=== PATIENT | female | born 1975 | race Caucasian/White ===

== ENCOUNTER 2017-11-27 21:58 | Emergency (ER) | payer OTHER ==
[~2017-11-27] VITALS: Ht 157.5 cm; Wt 81.6 kg
[~2017-11-27 21:58] MED LIST: LOSARTAN POTASS25 MG; METFORMIN HCL1000 M2
[2017-11-27] MEDS ORDERED: ATENOLOL25 MG PO (22:04)
[2017-11-27] MEDS ORDERED: [UNRECOGNIZED DRUG - OTHER] (22:05)
[2017-11-28] MEDS ORDERED: ACIDOPHILUS1 EAC1 PO (03:36)
[2017-11-28] MEDS ORDERED: LEVSIN/SL0.125 MG SL (03:36)
[2017-11-28] MEDS ORDERED: ZOFRAN ODT8 MG PO (03:36)
== END 2017-11-28 04:03 | disposition home or self-care (01) ==
LOC: ER 21:58
DX: R10.11 Right upper quadrant pain (principal)

== ENCOUNTER 2023-07-27 23:10 | Emergency (ER) | payer OTHER ==
[~2023-07-27] VITALS: Ht 157.5 cm; Wt 72.6 kg
[~2023-07-27 23:10] MED LIST changes: +ACIDOPHILUS1 EAC1 PO; +ATENOLOL25 MG PO; +LEVSIN/SL0.125 MG SL; +NABUMETONE750 MG PO; +NORFLEX100MG PO; +ZOFRAN ODT8 MG PO; +[UNRECOGNIZED DRUG - OTHER]
[2023-07-27] MEDS ORDERED: PROZAC10 M1 PO (23:59)
[2023-07-28] MEDS ORDERED: WELLBUTRIN XL300 MG PO
[2023-07-28 00:57] LABS: HEMATOCRIT 42.4 % (36.0-45.00); HEMOGLOBIN 13.7 g/dL (12.0-15.00); MEAN CELL VOLUME 85.6 fL (80.00-100.00); MEAN CORPUSCULAR HEMOGLOBIN 27.6 pg (27.00-32.0); MEAN CORPUSCULAR HGB CONC 32.3 g/dl (32.0-36.0); PLATELET COUNT 298 K/uL (150-450); RED BLOOD COUNT 4.96 M/uL (4.00-6.00); RED CELL DISTRIBUTION WIDTH 13.7 % (11.5-14.5)
[2023-07-28 01:04] LABS: CALCIUM 9.4 mg/dL (8.5-10.1); CREATININE SERUM 0.7 mg/dL (0.55-1.02); GFR 90.08; POTASSIUM 3.79 mEq/L (3.5-5.1)
== END 2023-07-28 04:37 | disposition home or self-care (01) ==
LOC: ER
DX: K29.70 Gastritis, unspecified, without bleeding (principal); R11.10 Vomiting, unspecified

== ENCOUNTER 2023-11-25 20:30 | Inpatient (IN) | payer OTHER ==
[~2023-11-25] VITALS: Ht 157.5 cm; Wt 71.7 kg
[~2023-11-25 20:30] MED LIST changes: +PROZAC10 M1 PO; +WELLBUTRIN XL300 MG PO
[2023-11-25] MEDS ORDERED: FAMOTIDINE/PF 20 MG in 0.9 % SODIUM CHLORIDE 8 ML IV PUSH STA (20:55)
[2023-11-25] MEDS ORDERED: ONDANSETRON HCL 2 MG/ML VIAL IV ONE (21:00)
[2023-11-25] MEDS ORDERED: KETOROLAC TROMETHAMINE 30 MG VIAL IV ONE (21:00)
[2023-11-25] MEDS ORDERED: 0.9 % SODIUM CHLORIDE 1,000 ML IV SCH (21:00)
[2023-11-25 21:20] LABS: HEMATOCRIT 40.9 % (36.0-45.00); HEMOGLOBIN 13.7 g/dL (12.0-15.00); MEAN CELL VOLUME 83.8 fL (80.00-100.00); MEAN CORPUSCULAR HGB CONC 33.4 g/dl (32.0-36.0); PLATELET COUNT 307 K/uL (150-450); RED BLOOD COUNT 4.87 M/uL (4.00-6.00); RED CELL DISTRIBUTION WIDTH 12.8 % (11.5-14.5)
[2023-11-25 21:43] LABS: ALBUMIN 3.9 gm/dL (3.4-5.0); BILIRUBIN TOTAL 0.53 mg/dL (0.3-1.2); BILIRUBIN,CONJUGATED 0.14 mg/dL (0.0-0.2); BILIRUBIN,UNCONJUGATED 0.39 mg/dL (0.0-0.6); CALCIUM 9.5 mg/dL (8.5-10.1); CREATININE SERUM 0.72 mg/dL (0.55-1.02); GFR 87.2; GLOBULINA 3.5 G/DL (2.4-3.5); POTASSIUM 3.76 mEq/L (3.5-5.1); TOTAL PROTEIN 7.4 gm/dL (6.4-8.2)
[2023-11-26] MEDS ORDERED: KETOROLAC TROMETHAMINE 60 MG VIAL IM STA (07:57)
[2023-11-26] MEDS ORDERED: PROMETHAZINE HCL 50 MG/ML AMPUL IM STA (07:57)
[2023-11-26] MEDS ORDERED: CEFTRIAXONE SODIUM 1,000 MG VIAL IV STA (07:58)
[2023-11-26] MEDS ORDERED: FAMOTIDINE/PF 20 MG/2 ML VIAL IV PUSH STA (07:58)
[2023-11-26] MEDS ORDERED: HYOSCYAMINE SULFATE 0.125 MG TAB.SUBL SL ONE (08:00)
[2023-11-26] MEDS ORDERED: ONDANSETRON HCL 2 MG/ML VIAL IV PRN (08:15)
[2023-11-26] MEDS ORDERED: KETOROLAC TROMETHAMINE 30 MG VIAL IM PRN (08:15)
[2023-11-26] MEDS ORDERED: PIPERACILLIN/TAZOBACTAM SODIUM 3.375 GM VIAL IV SCH (12:00)
[2023-11-26] MEDS ORDERED: MORPHINE SULFATE 2 MG/ML CARTRIDGE IV SCH (13:14)
[2023-11-27 07:27] LABS: INR 1.09; PROTHROMBIN TIME 11.4 SECONDS (9.0-11.5)
== END 2023-11-27 13:30 | disposition left against medical advice (07) | DRG 446 ==
LOC: ER 20:31 → CIR.AMB 11-26 10:41 → ER 11-26 10:41 → SEC-K 11-26 13:51 → SURH 11-26 13:51
PROVIDERS: General Practice; ADMIT Internal Medicine; ATTEND Internal Medicine
PROC: BW40ZZZ Ultrasonography of Abdomen (ICD-10-PCS; principal; 2023-11-26)
PROC: CF1C1ZZ Planar Nuclear Medicine Imaging of Hepatobiliary System, All using Technetium 99m (Tc-99m) (ICD-10-PCS; 2023-11-26)
DX: K80.40 Calculus of bile duct with cholecystitis, unspecified, without obstruction (principal); Z20.822 Contact with and (suspected) exposure to COVID-19

== ENCOUNTER 2024-08-07 08:12 | Emergency (ER) | payer OTHER ==
[~2024-08-07] VITALS: Ht 157.5 cm; Wt 68.0 kg
[2024-08-07] MEDS ORDERED: RINGERS SOLUTION,LACTATED 1,000 ML IV STA (08:36)
[2024-08-07] MEDS ORDERED: FAMOtidine 10 MG/ML (4ML VIAL) IV STA (08:36)
[2024-08-07] MEDS ORDERED: ONDANSETRON HCL 2 MG/ML VIAL IV STA (08:36)
[2024-08-07 09:38] LABS: HEMATOCRIT 44.8 % (36.0-45.00); MEAN CELL VOLUME 86.2 fL (80.00-100.00); MEAN CORPUSCULAR HEMOGLOBIN 27.7 pg (27.00-32.0); MEAN CORPUSCULAR HGB CONC 32.1 g/dl (32.0-36.0); PLATELET COUNT 292 K/uL (150-450); RED BLOOD COUNT 5.19 M/uL (4.00-6.00); RED CELL DISTRIBUTION WIDTH 12.9 % (11.5-14.5)
[2024-08-07 09:40] LABS: HEMOGLOBIN 14.4 g/dL (12.0-15.00)
[2024-08-07 10:04] LABS: ALBUMIN 3.9 gm/dL (3.4-5.0); BILIRUBIN TOTAL 0.32 mg/dL (0.3-1.2); BILIRUBIN,CONJUGATED 0.1 mg/dL (0.0-0.2); BILIRUBIN,UNCONJUGATED 0.22 mg/dL (0.0-0.6); CREATININE SERUM 0.69 mg/dL (0.55-1.02); GFR 91.19; POTASSIUM 4.53 mEq/L (3.5-5.1)
[2024-08-07 13:34] LABS: URINE APPEARANCE Turbid; URINE BILIRRUBIN Negative (NEGATIVE); URINE BLOOD Negative; URINE COLOR Yellow; URINE GLUCOSE Negative (NEGATIVE); URINE KETONE Negative (NEGATIVE); URINE LEUKOCYTE Negative; URINE NITRATE Negative; URINE PROTEIN Negative (NEGATIVE); URINE UROBILINOGEN 0.2 E.U./dl
[2024-08-07 13:41] LABS: URINE BACTERIA 554.3 uL (0.0-1933); URINE EPITHELIAL CELLS 25.5 uL (0.0-38.8); URINE RBC 25.3 uL (0.0-20.8); URINE WBC 5.1 uL (0.0-23.2)
== END 2024-08-07 14:30 | disposition home or self-care (01) ==
LOC: ER 08:14
PROVIDERS: General Practice
DX: K52.89 Other specified noninfective gastroenteritis and colitis (principal); Z86.59 Personal history of other mental and behavioral disorders

== ENCOUNTER 2024-11-24 17:24 | Emergency (ER) | payer OTHER ==
[~2024-11-24] VITALS: Ht 162.6 cm; Wt 59.0 kg
[2024-11-24] MEDS ORDERED: FAMOTIDINE/PF 20 MG in 0.9 % SODIUM CHLORIDE 8 ML IV PUSH STA (18:12)
[2024-11-24] MEDS ORDERED: 0.9 % SODIUM CHLORIDE 1,000 ML IV SCH (18:15)
[2024-11-24] MEDS ORDERED: ONDANSETRON HCL 2 MG/ML VIAL IV ONE (18:15)
[2024-11-24 18:45] LABS: HEMATOCRIT 44.1 % (36.0-45.00); HEMOGLOBIN 14.6 g/dL (12.0-15.00); MEAN CORPUSCULAR HEMOGLOBIN 28.5 pg (27.00-32.0); MEAN CORPUSCULAR HGB CONC 33.1 g/dl (32.0-36.0); PLATELET COUNT 348 K/uL (150-450); RED BLOOD COUNT 5.12 M/uL (4.00-6.00); RED CELL DISTRIBUTION WIDTH 13.7 % (11.5-14.5)
[2024-11-24 19:16] LABS: ALBUMIN 4.3 gm/dL (3.4-5.0); BILIRUBIN TOTAL 0.42 mg/dL (0.3-1.2); CALCIUM 9.7 mg/dL (8.5-10.1); CREATININE SERUM 0.87 mg/dL (0.55-1.02); GFR 69.79; GLOBULINA 3.8 G/DL (2.4-3.5); POTASSIUM 3.84 mEq/L (3.5-5.1); TOTAL PROTEIN 8.1 gm/dL (6.4-8.2)
[2024-11-24] MEDS ORDERED: ZOFRAN8 MG PO (20:13)
[2024-11-24] MEDS ORDERED: PEPCID AC20 MG PO (20:13)
== END 2024-11-24 20:35 | disposition home or self-care (01) ==
LOC: ER 17:24
PROVIDERS: General Practice
DX: K29.70 Gastritis, unspecified, without bleeding (principal)

== ENCOUNTER 2024-11-24 23:01 | Emergency (ER) | payer OTHER ==
[~2024-11-24] VITALS: Ht 157.5 cm; Wt 65.8 kg
[~2024-11-24 23:01] MED LIST changes: +PEPCID AC20 MG PO; +ZOFRAN8 MG PO
[2024-11-25] MEDS ORDERED: 0.9 % SODIUM CHLORIDE 1,000 ML IV STA (00:29)
[2024-11-25] MEDS ORDERED: PROMETHAZINE HCL 50 MG/ML AMPUL IM STA (00:29)
[2024-11-25] MEDS ORDERED: METOCLOPRAMIDE HCL 5 MG/ML VIAL IM STA (00:30)
== END 2024-11-25 05:40 | disposition home or self-care (01) ==
LOC: ER 23:03
DX: K29.70 Gastritis, unspecified, without bleeding (principal); K21.9 Gastro-esophageal reflux disease without esophagitis; R11.10 Vomiting, unspecified
CPT/HCPCS: 96365; 96366; 96372; 99282; J2250; J2765; J7030

== ENCOUNTER 2025-04-06 03:06 | Emergency (ER) | payer OTHER ==
[~2025-04-06] VITALS: Ht 157.5 cm; Wt 65.3 kg
[2025-04-06] MEDS ORDERED: MORPHINE SULFATE 4 MG/ML VIAL IV STA (04:43)
[2025-04-06] MEDS ORDERED: FAMOTIDINE/PF 20 MG/2 ML VIAL IV PUSH STA (04:44)
[2025-04-06] MEDS ORDERED: PROMETHAZINE HCL 25 MG/ML AMPUL IM STA (04:45)
[2025-04-06] MEDS ORDERED: PROMETHAZINE HCL 25 MG/ML AMPUL ONE (04:57)
[2025-04-06 06:15] LABS: BASO % 0.2 % (0.1-1.2); EOS # 0.01 (0.04-0.54); EOS % 0.1 % (0.7-7.0); LYMPH # 0.71 (1.18-3.74); LYMPH % 5.0 % (19.3-53.1); MEAN PLATELET VOLUME 10.20 fl (9.4-12.4); MONO # 1.36 (0.24-0.82); MONO % 9.6 % (4.7-12.5); NEUT # 12.00 (1.56-6.13); NEUT % 84.7 % (34.0-71.1); RED CELL DISTRIBUTION WIDTH 12.7 % (11.6-14.4)
[2025-04-06 06:50] LABS: INR 1.07
[2025-04-06 06:59] LABS: URINE EPITHELIAL CELLS 20.4 uL (0.0-38.8); URINE RBC 9.3 uL (0.0-20.8); URINE WBC 1049.3 uL (0.0-23.2)
[2025-04-06 07:04] LABS: ALT/SGPT 18.0 U/L (12-78); AST/SGOT 11.0 U/L (15-37); BILIRUBIN TOTAL 1.02 mg/dL (0.3-1.2); BILIRUBIN,CONJUGATED 0.22 mg/dL (0.0-0.2); BUN CREA RATIO 14.0 (7.0-25.0); CREATININE SERUM 0.76 mg/dL (0.55-1.02); GFR 81.57; GLOBULINA 3.3 G/DL (2.4-3.5); GLUCOSE FASTING 100.0 mg/dL (65-100); OSMOLALITY SERUM 277.0 MOSM/KG (275-295)
[2025-04-06 07:06] LABS: URINE APPEARANCE Cloudy; URINE BILIRRUBIN Negative (NEGATIVE); URINE BLOOD Trace; URINE COLOR Yellow; URINE GLUCOSE Negative (NEGATIVE); URINE LEUKOCYTE Moderate; URINE NITRATE Positive; URINE PROTEIN Trace (NEGATIVE); URINE UROBILINOGEN 1.0 E.U./dl
[2025-04-06 07:09] LABS: URINE BACTERIA > 9821.5 uL (0.0-1933); URINE CAST 0.00 uL (0.0-1.40); URINE KETONE 40 (NEGATIVE)
[2025-04-06] MEDS ORDERED: CEFTRIAXONE SODIUM 1,000 MG VIAL ONE (07:28)
[2025-04-06] MEDS ORDERED: CEFTRIAXONE SODIUM 1,000 MG VIAL IV STA (07:29)
[2025-04-06] MEDS ORDERED: CIPRO500 MG PO ×3 (08:17→08:18)
[2025-04-06] MEDS ORDERED: NABUMETONE750 MG PO ×3 (08:17→08:18)
[2025-04-06] MEDS ORDERED: PEPCID40 MG PO (08:18)
[2025-04-06] MEDS ORDERED: KETOROLAC TROMETHAMINE 60 MG VIAL IM ONE ×2 (08:58→09:00)
== END 2025-04-06 09:12 ==
LOC: ER 03:11
PROVIDERS: General Practice
DX: N39.0 Urinary tract infection, site not specified (principal); R10.9 Unspecified abdominal pain; R11.0 Nausea; I10 Essential (primary) hypertension

== ENCOUNTER 2025-04-07 12:24 | Emergency (ER) | payer OTHER ==
[~2025-04-07] VITALS: Ht 157.5 cm; Wt 65.8 kg
[~2025-04-07 12:24] MED LIST changes: +CIPRO500 MG PO; +PEPCID40 MG PO
[2025-04-07] MEDS ORDERED: TRAMADOL HCL 50 MG TABLET PO STA (14:01)
[2025-04-07 14:46] LABS: BASO % 0.4 % (0.1-1.2); EOS # 0.05 (0.04-0.54); EOS % 0.5 % (0.7-7.0); LYMPH # 1.44 (1.18-3.74); LYMPH % 14.1 % (19.3-53.1); MEAN PLATELET VOLUME 10.30 fl (9.4-12.4); MONO # 1.49 (0.24-0.82); NEUT # 7.15 (1.56-6.13); NEUT % 69.9 % (34.0-71.1); RED CELL DISTRIBUTION WIDTH 12.7 % (11.6-14.4)
[2025-04-07 14:48] LABS: MONO % 14.6 % (4.7-12.5)
[2025-04-07 15:03] LABS: URINE APPEARANCE Cloudy; URINE BILIRRUBIN Negative (NEGATIVE); URINE BLOOD Negative; URINE COLOR Yellow; URINE GLUCOSE Negative (NEGATIVE); URINE KETONE Negative (NEGATIVE); URINE LEUKOCYTE Small; URINE NITRATE Negative; URINE PROTEIN Trace (NEGATIVE); URINE UROBILINOGEN 1.0 E.U./dl
[2025-04-07 15:08] LABS: URINE BACTERIA 2835.3 uL (0.0-1933); URINE EPITHELIAL CELLS 87.9 uL (0.0-38.8); URINE RBC 9.0 uL (0.0-20.8); URINE WBC 133.5 uL (0.0-23.2)
[2025-04-07 15:11] LABS: ALT/SGPT 17.0 U/L (12-78); AST/SGOT 11.0 U/L (15-37); BILIRUBIN TOTAL 0.53 mg/dL (0.3-1.2); BUN CREA RATIO 17.0 (7.0-25.0); CREATININE SERUM 0.77 mg/dL (0.55-1.02); GFR 80.35; GLOBULINA 3.6 G/DL (2.4-3.5); GLUCOSE FASTING 94.0 mg/dL (65-100); OSMOLALITY SERUM 281.0 MOSM/KG (275-295)
[2025-04-07 15:39] LABS: URINE CAST 0.00 uL (0.0-1.40)
== END 2025-04-07 17:40 | disposition home or self-care (01) ==
LOC: ER 12:24
PROVIDERS: General Practice
DX: N39.0 Urinary tract infection, site not specified (principal); N83.201 Unspecified ovarian cyst, right side; Q63.2 Ectopic kidney

== ENCOUNTER 2025-07-13 17:10 | Emergency (ER) | payer OTHER ==
[~2025-07-13] VITALS: Ht 157.5 cm; Wt 65.8 kg
[2025-07-13] MEDS ORDERED: LAMICTAL200 MG PO (18:07)
[2025-07-13] MEDS ORDERED: CLONAZEPAM0.5 MG PO (18:07)
[2025-07-13] MEDS ORDERED: ORPHENADRINE CITRATE 30 MG/ML AMPUL IM ONE (18:30)
[2025-07-13] MEDS ORDERED: FAMOtidine 10 MG/ML (4ML VIAL) IV PUSH ONE (18:30)
[2025-07-13] MEDS ORDERED: ONDANSETRON HCL 2 MG/ML VIAL IV ONE (18:30)
[2025-07-13] MEDS ORDERED: 0.9 % SODIUM CHLORIDE 1,000 ML IV SCH (18:30)
[2025-07-13 19:15] LABS: BASO % 0.3 % (0.1-1.2); EOS # 0.02 (0.04-0.54); EOS % 0.2 % (0.7-7.0); LYMPH # 1.28 (1.18-3.74); LYMPH % 12.2 % (19.3-53.1); MEAN PLATELET VOLUME 10.10 fl (9.4-12.4); MONO # 0.48 (0.24-0.82); MONO % 4.6 % (4.7-12.5); NEUT # 8.70 (1.56-6.13); NEUT % 82.6 % (34.0-71.1); RED CELL DISTRIBUTION WIDTH 12.1 % (11.6-14.4)
[2025-07-13 20:10] LABS: ALT/SGPT 23 U/L (12-78); AST/SGOT 12 U/L (15-37); BILIRUBIN TOTAL 0.60 mg/dL (0.3-1.2); BUN CREA RATIO 18 (7.0-25.0); CREATININE SERUM 0.67 mg/dL (0.55-1.02); GFR 93.94; GLOBULINA 3.0 G/DL (2.4-3.5); GLUCOSE FASTING 97 mg/dL (65-100); OSMOLALITY SERUM 283 MOSM/KG (275-295)
[2025-07-13 20:12] LABS: HCG QUANTITATIVE < 1 mUI/mL (1-3)
[2025-07-13] MEDS ORDERED: CARAFATE1 GM PO (23:56)
[2025-07-13] MEDS ORDERED: PROTONIX40 MG PO (23:56)
[2025-07-13] MEDS ORDERED: LEVSIN/SL0.125 MG SL (23:56)
[2025-07-13] MEDS ORDERED: PEPCID AC20 MG PO (23:56)
== END 2025-07-14 00:54 | disposition home or self-care (01) ==
LOC: ER 17:11
PROVIDERS: General Practice
DX: K52.89 Other specified noninfective gastroenteritis and colitis (principal); F41.9 Anxiety disorder, unspecified